=== PATIENT | male | born 1960 | race Caucasian/White ===

== ENCOUNTER 2018-08-13 10:38 | Emergency (ER) | payer OTHER ==
[2018-08-13 10:45] VITALS: RESP 18
--- NOTE | 2018-08-13 11:43 | ED ---
General Adult HPI - General Chief complaint: Skin/Abscess/Foreign Body Stated complaint: Male /infection Time Seen by Provider: 08/13/18 10:52 Source: patient, RN notes reviewed Mode of arrival: ambulatory - History of Present Illness Initial comments: 57-year-old male with a past medical history of hypertension, hemorrhoids presents to the emergency determine for yeast infection. Patient presents with spool sander from [facility]. Patient has had a yeast infection for 18 months. They are concerned that yeast infection has not resolved. [facility] states patient is only showering once or twice a week. States that he is only using his powder once or twice per week as well. States that they have not followed up with primary care for this. Sates they're concerned this could go to his blood.no fevers or chills. Patient is feeling his normal self. Patient has no other complaints at this time including shortness of breath, chest pain, abdominal pain, nausea or vomiting, headache, or visual changes. - Related Data Home Medications Medication Instructions Recorded Confirmed Levothyroxine Sodium [Synthroid] 25 mcg PO DAILY 02/16/15 08/13/18 ARIPiprazole IM [Abilify Maintena] 400 mg IM Q28D 08/13/18 08/13/18 Albuterol Inhaler [Ventolin Hfa 1 - 2 puff INHALATION RT-Q6H PRN 08/13/18 08/13/18 Inhaler] Cholecalciferol [Vitamin D3 (25 1,000 unit PO DAILY 08/13/18 08/13/18 Mcg = 1000 Iu)] Cholestyramine (with Sugar) 4 gm PO DAILY 08/13/18 08/13/18 [Cholestyramine Packet] Lisinopril [Prinivil] 10 mg PO DAILY 08/13/18 08/13/18 Nystatin 100,000 Unit/gm Powd 1 applic TOPICAL TID 08/13/18 08/13/18 [Mycostatin Powder] Allergies Allergy/AdvReac Type Severity Reaction Status Date / Time No Known Allergies Allergy Verified 08/13/18 11:11 Review of Systems ROS Statement: Those systems with pertinent positive or pertinent negative responses have been documented in the HPI. ROS Other: All systems not noted in ROS Statement are negative. Past Medical History Past Medical History: Hypertension Additional Past Medical History / Comment(s): hemmorroids, foot blisters History of Any Multi-Drug Resistant Organisms: None Reported Additional Past Surgical History / Comment(s): hemorroids Past Psychological History: Anxiety, Depression Smoking Status: Former smoker Past Alcohol Use History: None Reported Past Drug Use History: None Reported General Exam General appearance: alert, in no apparent distress Head exam: Present: atraumatic, normocephalic, normal inspection Eye exam: Present: normal appearance, PERRL, EOMI. Absent: scleral icterus, conjunctival injection ENT exam: Present: normal exam, mucous membranes moist Neck exam: Present: normal inspection, full ROM. Absent: tenderness, meningismus, lymphadenopathy Respiratory exam: Present: normal lung sounds bilaterally. Absent: respiratory distress, wheezes, rales, rhonchi, stridor Cardiovascular Exam: Present: regular rate, normal rhythm, normal heart sounds. Absent: systolic murmur, diastolic murmur, rubs, gallop, clicks GI/Abdominal exam: Present: soft, normal bowel sounds. Absent: distended, tenderness, guarding, rebound, rigid exam: Present: other (Patient does have mild yeast infection noted along the intertriginous areas of the groin and buttock. No significant erythema, no edema, no evidence of bacterial infection.). Absent: testicular tenderness, urethral discharge, scrotal swelling, vertical testicular lie, circumcision Neurological exam: Present: alert, oriented X3, CN II-XII intact Psychiatric exam: Present: normal affect, normal mood Course Vital Signs 08/13/18 10:41 Temperature 98.7 F Pulse Rate 91 Respiratory 18 Rate Blood Pressure 131/86 O2 Sat by Pulse 95 Oximetry Medical Decision Making - Medical Decision Making 57-year-old male presents with [facility] spool sander for chief complaint of yeast infection 18 months. [employer] states it is not going away. She also states he is only showering once or twice per week, not keeping the area dry, and not using his powder. States their concern is could go to his blood. On exam patient does have mild yeast infection however no significant erythema. No evidence of a cellulitic infection. No evidence for any severe infection of the pelvic area. No history of diabetes. There is a foul odor in this area. Offered patient a shower however he refuses stating he already shower today. Discussed with spool sander, I do agree that patient would benefit from additional home care by healthcare professional. Discussed that he needs to use his powder 3 times daily. Stress that he needs to keep the area clean daily as well as keep the area dry. Discussed that they need to follow up with primary care for this chronic issue. Discussed monitoring and returning if patient has any worsening symptoms. Disposition Clinical Impression: Yeast infection of the skin Disposition: HOME SELF-CARE Condition: Good Instructions (If sedation given, give patient instructions): Yeast Infection (ED) Additional Instructions: Please keep the area dry. Make sure to clean the area daily. Apply urinary nystatin powder to the area 3 times daily. Follow-up with primary care in 1-2 days. Return if patient has any worsening symptoms. Is patient prescribed a controlled substance at d/c from ED?: No Referrals: Dao Owen MD [REFERRING] - 1-2 days Time of Disposition: 11:47
[2018-08-13 12:22] VITALS: BP 154/94; PULSE 82; TEMP 98.6
== END 2018-08-13 12:26 | disposition home or self-care (01) ==
LOC: EC 10:38
DX: B37.2 Candidiasis of skin and nail (principal); I10 Essential (primary) hypertension; F32.9 Major depressive disorder, single episode, unspecified; F41.9 Anxiety disorder, unspecified; Z87.891 Personal history of nicotine dependence; Z79.890 Hormone replacement therapy; Z79.899 Other long term (current) drug therapy
CPT/HCPCS: 99283